=== PATIENT | female | born 1960 | race Caucasian/White ===

== ENCOUNTER 2017-09-12 19:08 | Emergency (ER) | payer BC ==
[2017-09-12] MEDS ORDERED: Albuterol 6.7 GM Inhaler INH ONE ×2 (19:09→20:49)
[2017-09-12] MEDS ORDERED: Metoclopramide 10 MG/2 ML SDV IVPUSH ONE (20:06)
[2017-09-12] MEDS ORDERED: Sodium Chloride 0.9% 1,000 ML IV ONE (20:06)
[2017-09-12] MEDS ORDERED: Oseltamivir 75 MG Cap PO ONE (20:06)
[2017-09-12] MEDS ORDERED: Azithromycin 250 MG Tab PO ONE (20:06)
--- NOTE | 2017-09-12 20:11 | EDM.PDOC ---
ED HPI GENERAL MEDICAL PROBLEM - General Chief Complaint: Respiratory Problem Stated Complaint: WBC LOW, DR ARRIOLA PT Time Seen by Provider: 09/12/17 20:11 Source of Information: Reports: Patient, Family History Limitations: Reports: No Limitations - History of Present Illness INITIAL COMMENTS - FREE TEXT/NARRATIVE: ED via request from [facility]. Patient seen in clinic earlier today for cough fever and body aches. Labs drawn, Patient had left clinic prior to results. WBC at 28,000. Patient called and told to go to ED. Sx started . Poor appetite. Some water today. No tylenol since yesterday Bilateral Shoulder Pain Score (Numeric/FACES): 8 - Related Data Allergies Allergy/AdvReac Type Severity Reaction Status Date / Time No Known Allergies Allergy Verified 09/12/17 19:30 Home Meds: Home Meds . [No Known Home Meds] 09/12/17 [History] Past Medical History Hematologic History: Reports: Anemia - Past Surgical History Female Surgical History: Reports: Section Social & Family History - Tobacco Use Smoking Status *Q: Never Smoker Second Hand Smoke Exposure: No - Recreational Drug Use Recreational Drug Use: No ED ROS GENERAL - Review of Systems Review Of Systems: See Below Constitutional: Reports: Fever, Chills HEENT: Reports: Throat Pain Respiratory: Reports: Cough, Sputum Cardiovascular: Reports: No Symptoms Endocrine: Reports: Fatigue GI/Abdominal: Reports: Decreased Appetite Musculoskeletal: Reports: Other (generalized body aches) Skin: Reports: No Symptoms Neurological: Reports: No Symptoms ED EXAM, GENERAL - Physical Exam Exam: See Below Exam Limited By: No Limitations General Appearance: Moderate Distress Eye Exam: Bilateral Eye: EOMI Ears: Normal External Exam Ear Exam: Bilateral Ear: TM normal Nose: Normal Inspection Throat/Mouth: Other (mucus membranes dry). No: Inflammation Head: Atraumatic, Normocephalic Neck: Normal Inspection, Full Range of Motion. No: Lymphadenopathy (L), Lymphadenopathy (R) Respiratory/Chest: No Respiratory Distress, Decreased Breath Sounds (left upper) Cardiovascular: Normal Peripheral Pulses, Regular Rate, Rhythm, Tachycardia GI/Abdominal: Normal Bowel Sounds, Soft Back Exam: Normal Inspection Extremities: Normal Inspection Neurological: Alert, Oriented, Normal Cognition Psychiatric: Normal Affect Skin Exam: Pallor. No: Rash Course - Vital Signs Last Recorded V/S: Last Vital Signs Temp 101 F H 09/12/17 21:03 Pulse 97 09/12/17 21:03 Resp 18 09/12/17 21:03 BP 110/60 09/12/17 21:03 Pulse Ox 94 L 09/12/17 21:03 - Orders/Labs/Meds Orders: Active Orders 24 hr Category Date Time Status CULTURE STREP A CONFIRMATION [RM] Stat Lab 09/12/17 20:00 Results STREP SCRN A RAPID W CULT CONF [RM] Stat Lab 09/12/17 20:00 Results Meds: Medications Discontinued Medications Generic Name Dose Route Start Last Admin Trade Name Fercho PRN Reason Stop Dose Admin Acetaminophen 650 mg 09/12/17 20:14 09/12/17 20:25 Tylenol PO 09/12/17 20:15 650 mg NOW ONE Administration Albuterol Confirm 09/12/17 20:49 09/12/17 21:03 Proventil Hfa Administered 09/12/17 20:50 Not Given Dose 6.7 gm INH .STK-MED ONE Azithromycin 500 mg 09/12/17 20:06 09/12/17 20:25 Zithromax PO 09/12/17 20:07 500 mg ONETIME ONE Administration Sodium Chloride 1,000 mls @ 999 mls/hr 09/12/17 20:06 09/12/17 20:21 Normal Saline IV 09/12/17 21:06 999 mls/hr .BOLUS ONE Administration Metoclopramide HCl 10 mg 09/12/17 20:06 09/12/17 20:21 Reglan IVPUSH 09/12/17 20:07 10 mg ONETIME ONE Administration Oseltamivir Phosphate 75 mg 09/12/17 20:06 09/12/17 20:24 Tamiflu PO 09/12/17 20:07 75 mg ONETIME ONE Administration - Radiology Interpretation Free Text/Narrative:: CXR: Left lower lobe pneumonia Departure - Departure Time of Disposition: 20:54 Disposition: Home, Self-Care 01 Condition: Fair Clinical Impression: Pneumonia Qualifiers: Pneumonia type: due to unspecified organism Laterality: left Lung location: lower lobe of lung Qualified Code(s): J18.1 - Lobar pneumonia, unspecified organism - Discharge Information Instructions: Community-Acquired Pneumonia, Adult, [id number] Referrals: PCP,None [Primary Care Provider] - Forms: ED Department Discharge Additional Instructions: increase fluids tylenol or ibuprofen for fever/discomfort continue antibiotics albuterol inhaler 2 puffs every 4 hours as needed for cough/wheeze recheck in clinic later this week sooner if symptoms worsen - My Orders Last 24 Hours: My Active Orders 09/12/17 20:00 CULTURE STREP A CONFIRMATION [] Stat STREP SCRN A RAPID W CULT CONF [] Stat - Assessment/Plan Last 24 Hours: My Active Orders 09/12/17 20:00 CULTURE STREP A CONFIRMATION [] Stat STREP SCRN A RAPID W CULT CONF [] Stat
[2017-09-12] MEDS ORDERED: Acetaminophen 325 MG Tab PO ONE (20:14)
== END 2017-09-12 21:08 | disposition home or self-care (01) ==
LOC: DL.ED 19:08
DX: J18.9 Pneumonia, unspecified organism (principal)
CPT/HCPCS: 71046; 87081; 87430; 87804; 96361; 96374; 99283; A9270; J2765; J7030